=== PATIENT | female | born 1980 | race Caucasian/White ===

== ENCOUNTER 2020-10-07 10:03 | Emergency (ER) | payer OTHER ==
[~2020-10-07 10:03] MED LIST: BUPRENORPHIN-N1 EACH SL; CIPRO500 MG PO; ENULOSE10 GM/15 M PO; FLAGYL500 MG PO; LEVAQUIN500 MG PO; LINZESS145 MCG PO; NAPROSYN500 MG PO; NEURONTIN 400400 MG PO; NORCO 5-325 TA1 EACH PO; PHENERGAN 25 MG25 M1 PO; ZOFRAN4 MG PO; ZOLOFT50 MG PO; ZOVIRAX 200 MG200 MG PO
== END 2020-10-07 13:21 | disposition home or self-care (01) ==
LOC: ER1 10:03
DX: M79.605 Pain in left leg (principal); M79.89 Other specified soft tissue disorders; F17.200 Nicotine dependence, unspecified, uncomplicated; Z86.718 Personal history of other venous thrombosis and embolism
CPT/HCPCS: 93971; 99283